=== PATIENT | male | born 1970 | race Caucasian/White ===

== ENCOUNTER 2019-05-05 19:07 | Inpatient (IN) ==
--- NOTE | 2019-05-05 19:13 | Emergency Department Note ---
General Adult HPI - General Stated complaint: Hand Cramp, Multi Cramp, N/V Time Seen by Provider: 05/05/19 19:11 Source: patient Mode of arrival: ambulatory Limitations: no limitations Nursing Notes Reviewed: Yes Vital Signs Reviewed: Yes - Related Data Previous Rx's Medication Instructions Recorded Azithromycin [Azithromycin 6-Tab 250 mg PO PER PKG DI #6 tab 05/04/18 Pack] Past Medical History - Past Medical History Medical history: Reports: hypertension Psychiatric history: Reports: no psych history - Social History Smoking Status: Current every day smoker Smokeless Tobacco Status: No Alcohol use: Reports: occasionally Drug use: Reports: none
[2019-05-05] MEDS ORDERED: 0.9 % Sodium Chloride 1,000 ML IVC ONE ×3 (19:18→21:06)
[2019-05-05] MEDS ORDERED: Ondansetron 4 MG/2 ML VIAL IVP ONE (19:18)
[2019-05-05] MEDS ORDERED: Ketorolac 15 MG/ML VIAL IVP ONE (19:25)
--- NOTE | 2019-05-05 19:55 | Emergency Department Note ---
Disposition Clinical Impression: MARINO (acute kidney injury), Dehydration with hyponatremia, Hyperglycemia Heat exhaustion Qualifiers: Encounter type: initial encounter Qualified Code(s): T67.5XXA - Heat exhaustion, unspecified, initial encounter Disposition: Admitted As Inpatient Condition: Fair Time of Disposition: 21:54 General Adult HPI - General Chief complaint: ED General Medical Stated complaint: Hand Cramp, Multi Cramp, N/V Time Seen by Provider: 05/05/19 19:11 Source: patient Mode of arrival: private vehicle Limitations: no limitations Nursing Notes Reviewed: Yes Vital Signs Reviewed: Yes - History of Present Illness HPI Narrative: Patient states, "I think I have heat exhaustion." 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 He states that his hands, feet and legs are intermittently cramping up and causing a lot of pain. Shortly after the muscle cramps started, he started to feel nauseated. About an hour later he again vomiting and then "dry heaving." He states that it was watery, nonbloody and nonbilious. After this he started to get a headache and feel very fatigued. He denies history of similar and states that he has worked outside his whole life and never had problems like this. He denies abdominal pain, diarrhea, constipation, dysuria, hematuria. He has noticed decreased urine output today. He describes the headache as dull, all over the head, nonradiating, mild in intensity and similar to previous headaches. Nothing makes it better or worse. He denies dizziness, vertigo, syncope, vision changes, double vision, blurry vision flashes, floaters, unilateral weakness, speech problems, ataxia, confusion or other complaints. Pt Subjective Complaint: Muscle cramps, fatigue, nausea and vomiting Onset (ago): hour(s) (2) Location: head, left, right, upper extremity, lower extremity Radiation: non-radiation Pain Severity: mild, moderate Pain Scale: 5 Quality: aching, dull Consistency: intermittent Improves with: nothing Worsens with: nothing Associated symptoms: Reports: headaches, malaise, nausea/vomiting. Denies: confusion, chest pain, cough, diaphoresis, fever/chills, loss of appetite, rash, seizure, shortness of breath, syncope, weakness Treatments Prior to Arrival: none - Related Data Home Medications Medication Instructions Recorded Confirmed Cholecalciferol (D-3) [Vitamin D] 1,000 unit PO DAILY 05/05/19 05/05/19 Allergies Allergy/AdvReac Type Severity Reaction Status Date / Time No Known Allergies Allergy Verified 05/05/19 19:40 All systems ED: reviewed and negative except as stated. Review of Systems: As Per HPI Constitutional: Denies: fever, chills, weakness Eyes: Denies: eye pain, vision change ENT ED: Denies: throat pain, congestion, dysphagia Cardiovascular: Denies: chest pain, palpitations, dyspnea on exertion, orthopnea, edema, syncope Respiratory: Denies: cough, dyspnea, wheezes, hemoptysis, stridor, sputum production Gastrointestinal: Reports: nausea, vomiting. Denies: abdominal pain, diarrhea, constipation Genitourinary: Denies: urgency, dysuria, frequency, hematuria Musculoskeletal: Reports: as per HPI, myalgia. Denies: back pain, neck pain, joint swelling, arthralgia Integumentary: Denies: rash, lesions, pruritus Neurological: Reports: as per HPI, headache. Denies: weakness, numbness, paresthesias, confusion, abnormal gait, vertigo Endocrine: Reports: as per HPI, fatigue Allergic/Immunologic: Denies: facial swelling Past Medical History - Past Medical History Attestation: Yes The following information was validated with the patient. Source: patient Medical history: Reports: hypertension Surgical history: Reports: non-contributory Psychiatric history: Reports: no psych history - Social History Smoking Status: Current every day smoker Smokeless Tobacco Status: No Alcohol use: Reports: heavy Drug use: Reports: none Physical Exam - General Limitations: no limitations General appearance: alert, in no apparent distress - Head Head exam: atraumatic, normocephalic, normal inspection - Eye Eye exam: Present: normal appearance. Absent: scleral icterus, conjunctival injection, periorbital swelling - ENT ENT exam: mucous membranes dry - Neck Neck exam: Present: normal inspection, trachea midline. Absent: meningismus - Chest Chest inspection: Present: normal inspection - Respiratory Respiratory exam: Present: normal lung sounds bilaterally. Absent: respiratory distress, wheezes, stridor, accessory muscle use, prolonged expiratory phase - Cardiovascular Cardiovascular exam: Present: regular rate, normal rhythm, normal heart sounds. Absent: systolic murmur, diastolic murmur - Abdominal Exam Abdominal exam: Present: soft, Non-Tender. Absent: distention, guarding, rebound, rigidity, trauma, ascites, mass - Extremities Exam Extremities exam: Present: normal inspection, full ROM, normal capillary refill. Absent: tenderness, pedal edema, joint swelling - Back Exam Back exam: Present: normal inspection. Absent: tenderness, CVA tenderness (R), CVA tenderness (L) - Neurological Exam Neurological exam: Present: alert, oriented X3, CN II-XII intact, normal gait. Absent: motor sensory deficit - Psychiatric Psychiatric exam: Present: normal affect, normal mood - Skin Skin exam: Present: warm, dry, intact, normal color Course Course Narrative: Patient presents for evaluation of possible heat related illness. He appears uncomfortable but nontoxic. He complains of muscle cramps, nausea, vomiting and a headache. He has had no syncope collapse, chest pain, dyspnea, altered mental status, confusion, seizure, ataxia or other neurologic complaint. Labs, EKG and meds ordered. Patient's EKG shows a normal sinus rhythm, rate of 96 with PVCs, probable biatrial enlargement and T-wave changes in the lateral leads. New compared to February 2011. Labs show acute kidney injury, mild hyponatremia and mild hypercalcemia. CPK is elevated at approximately 250. Suspect severe dehydration from exertional heat illness. Additional fluids have been ordered. LFTs. Coags, troponin and chest x-ray have been added as well. Patient's temp is normal and repeat rectal temp is also normal. He presented approximately two hours after onset of symptoms. He has no neurologic deficits or abnormal neuro findings on exam. Do not suspect heatstroke. We will admit for further evaluation and treatment - Reevaluation(s) Reevaluation #1: Patient states that he is feeling better but still has soreness and occasional cramps in the legs. No longer having hand and foot cramps. Headache is "Better but still there." VSS normal - O2 sat now 96%. Rectal temp is 98.1 Time: 21:00 - Consultations Consultation #1: Case discussed with Dr. Romo. He has accepted the patient for admission. Time: 21:54 Vital Signs Temperature 98.9 F 05/05/19 19:09 Pulse Rate 95 05/05/19 19:09 Respiratory Rate 18 05/05/19 19:09 Blood Pressure 125/79 05/05/19 19:09 O2 Sat by Pulse Oximetry 93 05/05/19 19:09 Temperature 98.9 F 05/05/19 19:09 Pulse Rate 95 05/05/19 19:09 Respiratory Rate 18 05/05/19 19:09 Blood Pressure 125/79 05/05/19 19:09 O2 Sat by Pulse Oximetry 93 05/05/19 19:09 Oxygen Delivery Oxygen Delivery Room Air Medical Decision Making - Medical Records Medical records reviewed: Yes I reviewed the patient's medical records. - Lab Data Lab results reviewed: Yes I reviewed the patient's lab results. Lab results narrative: Laboratory Last Values WBC 17.1 K/mcL (4.3-11.1) H 05/05/19 19:40 RBC 5.28 M/mcL (4.19-5.50) 05/05/19 19:40 Hgb 16.9 g/dL (12.9-16.9) 05/05/19 19:40 Hct 49.4 % (37.5-50.1) 05/05/19 19:40 MCV 93.6 fL (83.0-100.0) 05/05/19 19:40 MCH 32.0 pg (28.0-33.3) 05/05/19 19:40 MCHC 34.2 g/dL (31.6-35.5) 05/05/19 19:40 RDW 12.6 % (11.5-14.5) 05/05/19 19:40 Plt Count 279 K/mcL (140-400) 05/05/19 19:40 MPV 10.0 fL (9.4-12.4) 05/05/19 19:40 Immature Gran % 1.1 % (0-4) 05/05/19 19:40 Seg Neutrophils % 77.2 % 05/05/19 19:40 Lymphocytes % 12.5 % 05/05/19 19:40 Monocytes % 8.1 % 05/05/19 19:40 Eosinophils % 0.6 % 05/05/19 19:40 Basophils % 0.5 % 05/05/19 19:40 Neutrophils # 13.2 K/mcL (1.6-8.9) H 05/05/19 19:40 Lymphocytes # 2.1 K/mcL (0.6-4.6) 05/05/19 19:40 Monocytes # 1.4 K/mcL (0.0-1.3) H 05/05/19 19:40 Eosinophils # 0.1 K/mcL (0.0-0.6) 05/05/19 19:40 Basophils # 0.1 K/mcL (0.0-0.2) 05/05/19 19:40 PT 11.4 Seconds (9.4-12.1) 05/05/19 19:40 INR 1.0 05/05/19 19:40 APTT 32.7 Seconds (26.0-36.0) 05/05/19 19:40 Sodium 133 mEq/L (136-145) L 05/05/19 19:40 Potassium 4.3 mEq/L (3.5-5.1) 05/05/19 19:40 Chloride 94 mEq/L (98-107) L 05/05/19 19:40 Carbon Dioxide 22 mEq/L (23-29) L 05/05/19 19:40 BUN 36 mg/dL (6-20) H 05/05/19 19:40 Creatinine 2.56 mg/dL (0.70-1.30) H 05/05/19 19:40 Est GFR ( Amer) 33 (> 60) L 05/05/19 19:40 Est GFR (Non-Af Amer) 27 (> 60) L 05/05/19 19:40 BUN/Creatinine Ratio 14 (6-26) 05/05/19 19:40 Glucose 161 mg/dL (70-105) H 05/05/19 19:40 Calculated Osmolality 288 (280-300) 05/05/19 19:40 Calcium 10.9 mg/dL (8.6-10.3) H 05/05/19 19:40 Magnesium 1.8 mg/dL (1.6-2.6) 05/05/19 19:40 Total Bilirubin 1.2 mg/dL (0.3-1.0) H 05/05/19 19:40 Direct Bilirubin 0.2 mg/dL (0.0-0.2) 05/05/19 19:40 Indirect Bilirubin 1.0 mg/dL (0.0-1.2) 05/05/19 19:40 AST 28 Units/L (13-39) 05/05/19 19:40 ALT 38 Units/L (7-52) 05/05/19 19:40 Alkaline Phosphatase 120 Units/L (34-104) H 05/05/19 19:40 Creatine Kinase 276 Units/L (30-223) H 05/05/19 19:40 Troponin I < 0.03 ng/mL (< 0.04) 05/05/19 19:40 Serum Total Protein 8.5 g/dL (6.4-8.9) 05/05/19 19:40 Albumin 5.3 g/dL (3.5-5.7) 05/05/19 19:40 Globulin 3.2 g/dL (2.4-3.5) 05/05/19 19:40 Albumin/Globulin Ratio 1.7 (1.1-2.2) 05/05/19 19:40 Ur Specimen Adequacy See below A 05/05/19 20:50 Urine Color Dark Yellow (Yellow) 05/05/19 20:50 Urine Clarity Turbid (Clear) A 05/05/19 20:50 Urine pH 5.0 pH Units (5.0-8.0) 05/05/19 20:50 Ur Specific [place] 1.024 (1.010-1.025) 05/05/19 20:50 Urine Protein 100 mg/dL (Neg-Trace) H 05/05/19 20:50 Urine Glucose (UA) Normal mg/dL (Normal) 05/05/19 20:50 Urine Ketones Trace mg/dL (Negative) H 05/05/19 20:50 Urine Blood Negative (Negative) 05/05/19 20:50 Urine Nitrite Negative (Negative) 05/05/19 20:50 Urine Bilirubin Moderate (Negative) H 05/05/19 20:50 Urine Urobilinogen Normal mg/dL (Normal) 05/05/19 20:50 Ur Leukocyte Esterase Small (Negative) H 05/05/19 20:50 Urine Microscopic WBC 3-5 per hpf (0-3) H 05/05/19 20:50 Ur Squamous Epith Cells Many per lpf (None-Few) H 05/05/19 20:50 Ur Transition Epith Cell Few per hpf (None-Few) 05/05/19 20:50 Urine Bacteria Few per hpf (None-Few) 05/05/19 20:50 Ur Culture Indicated? YES (NO) A 05/05/19 20:50 - Radiology Data Radiology results reviewed: Yes I reviewed the patient's radiology results. Chest X-Ray 05/05/19 21:05 IMPRESSION: No acute cardiopulmonary process D/ / Kai Hannah / Kai Hannah Interpreting Provider: Kai Hannah - EKG Data EKG #1 EKG attestation: Yes I reviewed and interpreted this EKG. EKG shows normal: sinus rhythm Rate: normal Rhythm: NSR, PVC's P waves: LAE, KAITE When compared to previous EKG there are: changes noted Interpretation: nonspecific ST-T wave changes
[2019-05-05 19:58] LABS: Basophils # 0.1 K/mcL (0.0-0.2); Basophils % 0.5 %; Eosinophils # 0.1 K/mcL (0.0-0.6); Eosinophils % 0.6 %; Hematocrit 49.4 % (37.5-50.1); Hemoglobin 16.9 g/dL (12.9-16.9); Immature Granulocytes % 1.1 % (0-4); Lymphocytes # 2.1 K/mcL (0.6-4.6); Lymphocytes % 12.5 %; Mean Corpuscular HGB Conc 34.2 g/dL (31.6-35.5); Mean Corpuscular Volume 93.6 fL (83.0-100.0); Monocytes # 1.4 K/mcL (0.0-1.3); Monocytes % 8.1 %; Neutrophils # 13.2 K/mcL (1.6-8.9); Platelet Count 279 K/mcL (140-400); Red Blood Count 5.28 M/mcL (4.19-5.50); Red Cell Distribution Width 12.6 % (11.5-14.5); Segmented Neutrophils % 77.2 %; White Blood Count 17.1 K/mcL (4.3-11.1)
[2019-05-05 20:18] LABS: BUN/Creatinine Ratio 14 (6-26); Blood Urea Nitrogen 36 mg/dL (6-20); Calcium 10.9 mg/dL (8.6-10.3); Carbon Dioxide 22 mEq/L (23-29); Chloride 94 mEq/L (98-107); Creatine Kinase 276 Units/L (30-223); Glucose 161 mg/dL (70-105); Magnesium 1.8 mg/dL (1.6-2.6); Osmolality,Calculated 288 (280-300); Potassium 4.3 mEq/L (3.5-5.1); Sodium 133 mEq/L (136-145); eGFR For African Americans 33 (> 60); eGFR For Non-African Americans 27 (> 60)
[2019-05-05 21:06] LABS: Bilirubin,Urine Moderate (Negative); Blood,Urine Negative (Negative); Clarity,Urine Turbid (Clear); Color,Urine Dark Yellow (Yellow); Glucose,Urine (UA) Normal (Normal); Ketones,Urine Trace mg/dL (Negative); Leukocyte Esterase,Urine Small (Negative); Nitrite,Urine Negative (Negative); Protein,Urine 100 mg/dL (Neg-Trace); Specific Gravity,Urine 1.024 (1.010-1.025); Urobilinogen,Urine Normal (Normal)
[2019-05-05 21:10] LABS: Bacteria,Urine Few per hpf (None-Few); Squamous Epithelial Cell,Urine Many per lpf (None-Few)
[2019-05-05 21:17] LABS: Transitional Epi Cells,Urine Few per hpf (None-Few)
[2019-05-05 21:26] LABS: Prothrombin Time 11.4 Seconds (9.4-12.1)
[2019-05-05 21:27] LABS: Alanine Aminotransferase 38 Units/L (7-52); Albumin 5.3 g/dL (3.5-5.7); Albumin/Globulin Ratio 1.7 (1.1-2.2); Alkaline Phosphatase 120 Units/L (34-104); Aspartate Amino Transferase 28 Units/L (13-39); Bilirubin,Direct 0.2 mg/dL (0.0-0.2); Bilirubin,Total 1.2 mg/dL (0.3-1.0); Globulin 3.2 g/dL (2.4-3.5); Total Protein 8.5 g/dL (6.4-8.9); Troponin I < 0.03 ng/mL (< 0.04)
[2019-05-05 21:28] LABS: Activated Partial Thrombo Time 32.7 Seconds (26.0-36.0)
[2019-05-05] MEDS ORDERED: Ondansetron 4 MG/2 ML VIAL IVP PRN (23:19)
[2019-05-05] MEDS ORDERED: *HR* HYDROcodone/Acet 5/325 mg TABLET PO PRN (23:19)
[2019-05-05] MEDS ORDERED: Naloxone 0.4 MG/ML INJ IVP PRN (23:19)
[2019-05-05] MEDS ORDERED: Acetaminophen 325 MG TABLET PO PRN (23:19)
[2019-05-05] MEDS ORDERED: *HR* LORazepam 2 MG/ML VIAL IVP PRN (23:24)
[2019-05-05] MEDS: Folic Acid 1 MG TABLET PO SCH (23:56)
[2019-05-05] MEDS: Vitamin B Complex/Vit C/Vit E 1 EACH TABLET PO SCH (23:56)
[2019-05-05] MEDS: 0.9 % Sodium Chloride 1,000 ML IVC SCH (23:56)
[2019-05-05] MEDS: Thiamine (B-1) 100 MG TABLET PO SCH (23:56)
--- NOTE | 2019-05-05 23:57 | Internal Med History&Physical ---
Date of Encounter: 05/05/19 Time of Encounter: 23:00 Internal Medicine - H&P: HPI Chief complaint: muscle cramping, dehydration Admitted From: Emergency Dept Plans for Post Hospital Care: Home History of present illness: Mr. 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 While working outside this afternoon, he felt lightheaded, dizzy, and became nauseated, started vomiting, and he felt very weak and crampy. He therefore stopped on the roof, climbed down, and drove himself by car to the ER. Workup in ER revealed patient to have acute kidney failure, dehydration, and physical stigmata of sunburn. He was therefore admitted to hospitalist service. He did receive 3 L of IV fluid bolus in the ER prior to admission. Upon my assessment of the patient on the floor, he states he feels much better after IV fluids. He still feels weak, dehydrated, and hungry. His cramps have subsided. He is starting to make urine. He denies any fevers, chills, or night sweats. He denies any chest pain, cough, or shortness of breath. Of note, patient does admit to excessive alcohol intake, but he denies any history of alcohol withdrawal. He was not drinking any alcohol while working on the roof top, however. Past Med Surg Social Fam HX - Past Medical History Attestation: Yes The following information was validated with the patient. Source: patient, other (ER notes) Medical history: hypertension Psychiatric history: no psych history - Past Surgical History Surgical History: appendectomy, orthopedic, other - Social History Smoking Status: Current every day smoker Smokeless Tobacco Status: No Alcohol use: heavy Drug use: none Occupational status: employed Current living situation: Home Activity Level: Independent ambulation Recent Out of Country Travel Within the Last 8 Weeks: No - Family History Mother Living Status: Still Living Hx Family Genitourinary Disorders: No Father Living Status: Hx Family Genitourinary Disorders: No Internal Medicine - H&P: Meds Cholecalciferol (D-3) [Vitamin D] 1,000 unit PO DAILY 08/11/19 [History] Allergy/AdvReac Type Severity Reaction Status Date / Time No Known Allergies Allergy Verified 05/05/19 19:40 - Constitutional Constitutional: fatigue, weakness, no chills, no fever(s), no night sweats - EENT Eyes: no blurry vision, no change in vision Ears: no ear pain, no tinnitus Nose, mouth and throat: no nasal congestion, no sinus pressure, no sore throat - Cardiovascular Cardiovascular ROS IM: lightheadedness, no chest pain, no dyspnea, no dyspnea on exertion, no palpitations, no syncope - Respiratory Respiratory: no cough, no dyspnea, no chest congestion, no change in phlegm color, no pain with cough - Gastrointestinal Gastrointestinal: nausea, vomiting, no abdominal pain, no diarrhea, no heartburn, no hematemesis, no hematochezia, no melena - Genitourinary Genitourinary ROS male: difficulty urinating, no dysuria, no flank pain, no hematuria - Musculoskeletal Musculoskeletal ROS IM: muscle cramps, muscle weakness, tingling, no arthralgias, no back pain, no numbness - Integumentary Integumentary IM: other (sunburn), no rash, no jaundice - Neurological Neurological ROS: dizziness, no convulsions, no focal weakness, no frequent falls, no headache(s), no numbness, no vertigo - Psychiatric Psychiatric: no anxiety, no depression - Endocrine Endocrine IM: flushing, no cold intolerance, no heat intolerance, no polydipsia, no polyphagia, no polyuria - Allergic/Immunologic Allergic/Immunologic: no wheezing, no GI upset with certain foods - Constitutional Vitals: Temp Pulse Resp BP Pulse Ox 98.9 F 83 18 116/62 96 05/05/19 19:09 05/05/19 21:10 05/05/19 21:10 05/05/19 21:10 05/05/19 21:10 General appearance: Present: cooperative, A&O X 3, pleasant, no acute distress, answers questions appropriately Exam: looks mildly dehydrated now and sunburnt; otherwise no acute distress - Head Head exam: Present: atraumatic, normal inspection - Eye Eye exam: Present: EOMI, PERRL. Absent: scleral icterus Pupils: Present: normal accommodation - ENT ENT exam: Present: mucous membranes dry, normal exam, normal oropharynx - Neck Neck exam general surgery: Present: full ROM, supple, trachea midline. Absent: lymphadenopathy, tenderness, nuchal rigidity, thyromegaly - Respiratory Respiratory exam: Present: CTAB. Absent: chest wall tenderness, rales, rhonchi, wheezes - Cardiovascular Cardiovascular exam: Present: RRR, +S1, +S2. Absent: diastolic murmur, systolic murmur - GI/Abdominal GI/Abdominal exam: Present: normal bowel sounds, soft. Absent: guarding, hepatomegaly, mass, rebound, splenomegaly, tenderness - Extremities Exam Extremities exam: Present: full ROM, mottling (mild in legs), warm, radial pulses palpable and symmetrical. Absent: calf tenderness, joint swelling, tenderness Additional comments: mild muscle tenderness in legs - Back Exam Back exam: Present: normal inspection. Absent: CVA tenderness (L), CVA tenderness (R) - Neurological Exam Neurological exam: Present: alert, CN II-XII intact, oriented X3, no focal deficits, strengths equal and symetr throughout - Psychiatric Psychiatric exam: Present: normal affect, normal mood - Skin Skin exam: Present: dry, intact, warm Additional comments: sunburn upper torso Internal Med - H&P Results - Labs CBC & Chem 7: 05/05/19 19:40 05/05/19 19:40 Labs: Short CBC 05/05/19 Range/Units 19:40 WBC 17.1 H (4.3-11.1) K/mcL Hgb 16.9 (12.9-16.9) g/dL Hct 49.4 (37.5-50.1) % Plt Count 279 (140-400) K/mcL Neutrophils # 13.2 H (1.6-8.9) K/mcL BMP 05/05/19 19:40 Sodium 133 L Potassium 4.3 Chloride 94 L Carbon Dioxide 22 L BUN 36 H Creatinine 2.56 H Glucose 161 H Calcium 10.9 H Cardiac Enzymes 05/05/19 Range/Units 19:40 Troponin I < 0.03 (< 0.04) ng/mL Liver Function 05/05/19 Range/Units 19:40 Total Bilirubin 1.2 H (0.3-1.0) mg/dL Direct Bilirubin 0.2 (0.0-0.2) mg/dL AST 28 (13-39) Units/L ALT 38 (7-52) Units/L Alkaline Phosphatase 120 H (34-104) Units/L Albumin 5.3 (3.5-5.7) g/dL Urine 05/05/19 Range/Units 20:50 Urine Color Dark Yellow (Yellow) Urine Clarity Turbid A (Clear) Urine pH 5.0 (5.0-8.0) pH Units Ur Specific [place] 1.024 (1.010-1.025) Urine Protein 100 H (Neg-Trace) mg/dL Urine Glucose (UA) Normal (Normal) mg/dL - Impressions ITS Impressions Chest X-Ray 05/05/19 21:05 IMPRESSION: No acute cardiopulmonary process D/ / Kai Hannah / Kai Hannah Interpreting Provider: Kai Hannah - Diagnostic Studies Chest x-ray Status: image reviewed by me (negative) - Assessment and Plan (1) Acute kidney failure Current Visit: Yes Status: Acute Assessment and plan: 1. Likely due to dehydration and excessive heat/sun exposure. 2. IVF hydration after fluid boluses given in ER. 3. Will order renal ultrasound to evaluate. 4. Monitor I/O and renal function closely. 5. Consult nephrology for assistance. 6. Trend CPK levels. Qualifiers: Acute renal failure type: unspecified Qualified Code(s): N17.9 - Acute kidney failure, unspecified (2) Heat exhaustion Current Visit: Yes Status: Acute Assessment and plan: 1. IVF hydration. 2. Monitor vitals and clinically. 3. Counseled patient on the need to wear sunscreen and keeping hydrated while working outside in the heat. Qualifiers: Encounter type: initial encounter Qualified Code(s): T67.5XXA - Heat exhaustion, unspecified, initial encounter (3) Alcohol abuse Current Visit: Yes Status: Chronic Assessment and plan: 1. Will order CIWA protocol and monitor for signs and symptoms of withdrawal. 2. Monitor on telemetry. 3. Folic Acid, MVI, and Thiamine ordered. (4) DVT prophylaxis Current Visit: Yes Status: Acute Assessment and plan: 1. Heparin SQ.
[2019-05-06 04:26] LABS: Basophils # 0.1 K/mcL (0.0-0.2); Basophils % 0.7 %; Eosinophils # 0.2 K/mcL (0.0-0.6); Eosinophils % 1.8 %; Hematocrit 44.2 % (37.5-50.1); Immature Granulocytes % 0.6 % (0-4); Lymphocytes # 2.9 K/mcL (0.6-4.6); Lymphocytes % 26.6 %; Mean Corpuscular HGB Conc 32.4 g/dL (31.6-35.5); Mean Corpuscular Hemoglobin 31.8 pg (28.0-33.3); Mean Corpuscular Volume 98.4 fL (83.0-100.0); Mean Platelet Volume 9.9 fL (9.4-12.4); Monocytes # 1.1 K/mcL (0.0-1.3); Monocytes % 9.8 %; Neutrophils # 6.6 K/mcL (1.6-8.9); Platelet Count 226 K/mcL (140-400); Red Blood Count 4.49 M/mcL (4.19-5.50); Red Cell Distribution Width 12.7 % (11.5-14.5); Segmented Neutrophils % 60.5 %; White Blood Count 10.9 K/mcL (4.3-11.1)
[2019-05-06 04:41] LABS: Hemoglobin 14.3 g/dL (12.9-16.9)
[2019-05-06 04:52] LABS: Albumin 4.1 g/dL (3.5-5.7); Albumin/Globulin Ratio 1.8 (1.1-2.2); Bilirubin,Total 0.8 mg/dL (0.3-1.0); Calcium 9.1 mg/dL (8.6-10.3); Globulin 2.3 g/dL (2.4-3.5); Magnesium 2.3 mg/dL (1.6-2.6); Total Protein 6.4 g/dL (6.4-8.9)
[2019-05-06] MEDS ORDERED: *HR* Heparin 5,000 UNIT/ML VIAL SQ SCH (06:00)
--- NOTE | 2019-05-06 08:32 | Nephrology Consult Note ---
Date of Encounter: 05/06/19 Time of Encounter: 08:30 Assessment and Plan (1) MARINO (acute kidney injury) Current Visit: Yes Status: Acute This is a 48-year-old male with past medical history significant for hypertension who presents to the ED complaining of lightheadedness/dizziness plus nausea with vomiting, weakness after spending the weekend working outside all day. - Associated with muscle cramping, weakness, lethargy, fatigue - Denies history of chronic kidney disease. 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 - No recent history of NSAID use or recent antibiotic use - Does have history of alcohol abuse. States that he drinks a sixpack of beer a day plus 2 bloody Zaira's per day - Otherwise previously as made out of her urine output. Denies urinary urgency, frequency, hematuria, abdominal pain, flank pain - Patient drove himself to the ED with persistent symptoms. In the ED, vitals hemodynamically stable. Lab work notable for acute kidney injury (BUN/Cr = 36/2.56), mild hyponatremia = 133, elevated CPK = 250. Started on fluids. - Status post 3 L of IV fluids in the ED. Patient started to feel better after rehydration - Urinalysis: Dark yellow, Turbid urine; proteinuria (100), trace ketones, moderate bilirubin, small LE, 3-5 microscopic WBCs - On my examination this morning, patient doing well. No acute complaints. De nies any further cramping, nausea, and weakness, lethargy. Making adequate urine output. - BUN/Cr = 37/1.53 this a.m. - CK = 316 (slightly elevated from yesterday). PLAN: Mr. Gonzalez presents with acute kidney injury likely secondary to dehydration due to decreased by mouth intake, working in the heat all day yesterday, recent excess alcohol use. Hypovolemia likely related to kidney injury. Patient has responded to fluid rehydration and states that his symptoms have resolved. Kidney function has improved with rehydration, and patient has been making adequate urine output throughout the day. - Cont IV fluids - Cont to monitor urine output - Strict Is and Os - Renally dose medications - Avoid Nephrotoxins - Recommend repeat BMP, trend CK, Renal U/S while patient admitted - Recommend repeat urinalysis to evaluate for proteinuria at follow up with PCP; with persistent proteinuria once patient is euvolemic, recommend further workup (2) Proteinuria Current Visit: Yes Status: Acute - Urinalysis: Dark yellow, Turbid urine; proteinuria (100), trace ketones, moderate bilirubin, small LE, 3-5 microscopic WBCs PLAN: - Recommend repeat urinalysis to evaluate for proteinuria at follow up with PCP; with persistent proteinuria once patient is euvolemic, recommend further workup Qualifiers: Proteinuria type: isolated Isolated proteinuria type: with unspecified morphologic lesion Qualified Code(s): N06.9 - Isolated proteinuria with unspecified morphologic lesion (3) Alcohol abuse Current Visit: Yes Status: Chronic Patient reports drinking six-pack of beer every day + 2 bloody zaira's every day PLAN: Alcohol abuse night prior to presentation likely contributed to dehydration which likely led to MARINO - Cont CIWA protocol - Recommend cutting back on alcohol use - Close PCP follow up regarding alcohol abuse History of Present Illness - Reason for Consult Consult date: 05/05/19 Acute Kidney Injury Requesting physician: Garret Sheets - Chief Complaint Muscle cramping, Dehydration - History of Present Illness This is a 48-year-old male with past medical history significant for hypertension, alcohol abuse who initially presented to the ED complaining of lightheadedness/dizziness plus nausea and vomiting. Associated with weakness, lethargy, fatigue and muscle cramping. 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 Patient was concerned about dehydration and heat stroke. Notes over the past few days he has had very little fluid intake. When he left his project yesterday, noted a few episodes of nonbloody, nonbilious emesis, and noted that his muscles were cramping. He felt cramps in his lower extremities bilaterally, and felt significant cramping in his hands. After feeling this way, patient drove himself to the ED. Of note, patient is a chronic alcohol abuser. States that he drinks at least a sixpack of beer every day + 2 bloody Zaira's per day. Notes that on Monday evening, the day prior to presentation, she had drank this same amount that he usually does. Patient does however deny any further incidences of alcohol withdrawal, and denies drinking alcohol on the day of presentation. In the ED, patient was hemodynamically stable, but notably dehydrated. Lab work did review acute kidney injury, dehydration, and patient was notably sunburned. Patient received 3 L fluid bolus in the ED, and noted that he felt significantly improved afterwards. Noted after fluids, his cramping had improved. Patient was admitted to the hospital due to acute kidney injury in the setting of dehydration for further rehydration. Nephrology was consulted due to acute kidney injury. Past Med Surg Social Fam HX - Past Medical History Attestation: Yes The following information was validated with the patient. Source: patient, old records reviewed Medical history: hypertension Psychiatric history: no psych history - Past Surgical History Surgical History: appendectomy, orthopedic, other - Social History Smoking Status: Current every day smoker Smokeless Tobacco Status: No Alcohol use: heavy Drug use: none - Family History Mother Living Status: Still Living Hx Family Genitourinary Disorders: No Father Living Status: Hx Family Genitourinary Disorders: No Medications and Allergies Cholecalciferol (D-3) [Vitamin D] 1,000 unit PO DAILY 05/05/19 [History] Allergy/AdvReac Type Severity Reaction Status Date / Time No Known Allergies Allergy Verified 05/05/19 19:40 Review of Systems Constitutional: fatigue, headache(s), lethargy, malaise, weakness Nose, mouth and throat: dizziness, headache(s) Cardiovascular: lightheadedness, no chest pain, no chest pain at rest, no chest pain with activity, no diaphoresis, no dyspnea, no dyspnea on exertion, no edema, no irregular heart rhythm, no radiating jaw, neck or arm pain, no leg edema, no palpitations Respiratory: no cough, no dyspnea, no hemoptysis, no dyspnea on exertion, no wheezing, no chest congestion Gastrointestinal: cramping, nausea, vomiting, no abdominal pain, no diarrhea, no dysphagia, no hematemesis, no melena Genitourinary Male: difficulty urinating, no dysuria, no urinary frequency, no urinary hesitancy, no urinary urgency Musculoskeletal: muscle cramps, muscle weakness, myalgias, no back pain Integumentary: rash Neurological: dizziness, headache(s), weakness, no confusion, no syncope Psychiatric: no anxiety, no confusion Endocrine: fatigue Hematologic/Lymphatic: no easy bleeding, no easy bruising, no lymphadenopathy Exam - Vital Signs Vital signs: Initial Vital Signs Temp Pulse Resp BP Pulse Ox 98.9 F 95 18 125/79 93 05/05/19 19:09 05/05/19 19:09 05/05/19 19:09 05/05/19 19:09 05/05/19 19:09 Vital Signs - Last 8 Hours Temp Pulse Resp BP Pulse Ox 05/06/19 06:59 97.6 F 80 18 136/69 93 05/06/19 05:37 97.7 F 81 16 134/73 93 Intake and Output 05/05/19 05/06/19 05/06/19 23:59 07:59 15:59 Intake Total 1240 / 1240 Output Total 300 / 300 300 / 300 Balance 940 / 940 -300 / -300 Intake: IV Fluids 1000 / 1000 0.9 % Sodium Chloride 1,000 ML 1000 / 1000 @ 999 mls/hr IVC .Q1H1M ONE Rx# :[id number] Oral 240 / 240 Output: Urine 300 / 300 300 / 300 Other: Weight 99.337 kg - General Appearance General appearance: well-developed, well-nourished, appears started age, obese Exam: Pleasant 48-year-old male resting comfortably at bedside currently in no acute distress. EENT: ATNC, PERRL, mucous membranes moist Neck: no JVD, supple Respiratory: course breath sounds Additional Comments: Coarse breath sounds bilaterally Cardiology: no murmurs, no gallops, no edema, regular rate, regular rhythm, normal S1, normal S2 Gastrointestinal: normoactive bowel sounds, no tenderness, no guarding, no organomegaly, no masses, obese Additional Comments: Sunburn noted across anterior chest and face Neurologic: no focal deficit, alert and oriented x3, strength 5/5, CN 3-12 intact Musculoskeletal: no deformities, erythema, no cyanosis, no clubbing Psychiatric: mood/affect appropriate, cooperative Results - Lab Results 05/06/19 03:51 05/06/19 03:51 Most recent lab results 05/05/19 05/06/19 19:40 03:51 Calcium 10.9 H 9.1 Magnesium 1.8 2.3 Consult Discharge Plan - Plan Instructions: Acute Kidney Injury (DC), Abuse of Alcohol (DC) Additional Instructions: Please continue home medications as instructed. Please limit alcohol consumption especially when at risk for dehydration. Please ensure proper hydration especially at risk for dehydration. Please follow up with PCP regarding your recent hospital stay within 5-7 days. Please return to the emergency department if you experience fevers, chills, chest pain, shortness of breath, blood in stool or urine, or any other concerning or worsening symptoms. Referrals: Jeff Bernstein MD [Primary Care Provider] - 05/20/19 2:00 pm (Please follow up as schedule...)
[2019-05-06] MEDS: Thiamine (B-1) 100 MG TABLET PO SCH (08:53)
[2019-05-06] MEDS: Folic Acid 1 MG TABLET PO SCH (08:53)
[2019-05-06] MEDS: 0.9 % Sodium Chloride 1,000 ML IVC SCH (08:54)
[2019-05-06] MEDS: Vitamin B Complex/Vit C/Vit E 1 EACH TABLET PO SCH (09:07)
[2019-05-06 10:40] VITALS: BP 130/66
--- NOTE | 2019-05-06 10:40 | Discharge Summary ---
- NOTES TO OUTPATIENT PROVIDER Notes to Outpatient Provider: Mr. Gonzalez is a 48M who was admitted for dehydration secondary to heat exhaustion. PMH significant for hypertension. Workup in the ED revealed patient to have an MAIRNO and dehydration. Patient was treated with IV fluids. 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 Please repeat BMP and reevaluation of renal function in one week. Please advise patient on cutting back on alcohol use. Orders not resulted at time of discharge: Pending orders 05/05/19 20:50 Culture,Urine [RM] Stat Date of Encounter: 05/06/19 Time of Encounter: 10:37 - Discharge Diagnosis (1) MARINO (acute kidney injury) Priority: Primary Status: Acute (2) Heat exhaustion Priority: Secondary Status: Acute Qualifiers: Encounter type: initial encounter Qualified Code(s): T67.5XXA - Heat exhaustion, unspecified, initial encounter (3) Alcohol abuse Priority: Secondary Status: Chronic Hospital course: Mr. Gonzalez is a 48 year old male who presented with muscle cramps, nausea and vomiting, headache and decreased urine output after 2 days of roof work with little PO fluid intake. PMH significant for hypertension. Workup in the ED revealed patient to have an MARINO and dehydration secondary to heat exhaustion. Patient was treated with IV fluids. 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 Patient was discharged home. - Time Spent with Patient Total time spent providing and/or coordinating discharge services: - Discharge Medications Prescriptions: Continued Cholecalciferol (D-3) [Vitamin D] 1,000 unit PO DAILY Home Medications: Cholecalciferol (D-3) [Vitamin D] 1,000 unit PO DAILY 05/05/19 [History] Allergies/Adverse Reactions: Allergy/AdvReac Type Severity Reaction Status Date / Time No Known Allergies Allergy Verified 05/05/19 19:40 Date of admission: 05/05/19 23:20 Primary care physician: Jeff Bernstein MD Consults: 05/05/19 22:59 Consult to Nutrition [CONS] Routine Comment: Consulting Provider: NUTRITION Reason for Dietary Consult: MST Score 05/05/19 23:19 Consult to Nephrology [CONS] Routine Consulting Provider: [facility] [place]/[facility] Reason for Consult: acute kidney failure; likely due to dehydration/mild rhabdomyloysis Call Completed: No Discharging clinician: Nadiya Paredes - Constitutional Vitals: Temp Pulse Resp BP Pulse Ox 97.6 F 80 18 136/69 93 05/06/19 06:59 05/06/19 06:59 05/06/19 06:59 05/06/19 06:59 05/06/19 06:59 General appearance: Present: cooperative, A&O X 3, pleasant, no acute distress, answers questions appropriately Exam: Constitutional: alert, oriented, in no acute distress, oriented X 3, well nourished, well-developed Head: normocephalic, atraumatic Eyes: EOMI, pupils equal and reactive bilaterally Heart: normal, regular rate and rhythm, no murmurs, S1, S2 normal Lungs: clear to auscultation, no wheezes, rales, rhonchi Abdomen: soft, nontender, nondistended, no masses palpable, bowel sounds present and normal, no hepatosplenomegaly, no guarding or rigidity, no CVA tenderness Extremities: no clubbing, cyanosis, or edema, pulses +3/4 in all 4 extremities Neuro: 2+ DTRs in all 4 extremities rigo, strength +4/5 left upper and lower extremities, no other focal neuro deficits Skin: dry, intact, no bruising Psych: alert, oriented, cooperative with exam, good eye contact, cognitive f unction intact, judgement and insight good, speech clear, thought process logical, goal directed - Patient Status Disposition: Home, Self-Care Condition: Good Functional capacity at discharge: independent ambulation Overall status at discharge: patient is back to baseline - Discharge Instructions Instructions: Acute Kidney Injury (DC), Abuse of Alcohol (DC) Follow Up With: Jeff Bernstein MD [Primary Care Provider] - 05/20/19 2:00 pm (Please follow up as schedule...) Additional Instructions: Please continue home medications as instructed. Please limit alcohol consumption especially when at risk for dehydration. Please ensure proper hydration especially at risk for dehydration. Please follow up with PCP regarding your recent hospital stay within 5-7 days. Please return to the emergency department if you experience fevers, chills, chest pain, shortness of breath, blood in stool or urine, or any other concerning or worsening symptoms. - Diet and Activity Activity: resume usual activities as tolerated Diet: advance to your usual diet
--- NOTE | 2019-05-09 15:04 | Electrocardiograph Report ---
[facility] Test Date: 2019-05-05 Pat Name: Jaden Gonzalez Department: [id number] Room: 2A47 Gender: M Broker In Charge: : 1970 Requested By: Liliana Alvarez Order Number: [id number] Reading MD: Michael Alonso Measurements Intervals [place] Rate: 96 P: 69 MD: 140 QRS: 89 QRSD: 88 T: 46 QT: 342 QTc: 433 Interpretive Statements Sinus rhythm Paired ventricular premature complexes LAE, consider biatrial enlargement Borderline T wave abnormalities Electronically Signed On 05-09-2019 15:02:56 EDT by Michael Alonso
== END 2019-05-06 12:09 | disposition home or self-care (01) | DRG 923 ==
LOC: 2ANU 19:07 → EMEROOARM 19:07 → 2ANU 22:30 → SUATTDRO 23:20
PROVIDERS: ADMIT Family Medicine; ATTEND Internal Medicine